=== PATIENT | female | born 1990 | race Caucasian/White ===

== ENCOUNTER 2016-10-21 22:08 | Emergency (ER) ==
[2016-10-21] MEDS ORDERED: COMPAZINE IV ONE (22:58)
[2016-10-21] MEDS ORDERED: TORADOL IV ONE (22:58)
[2016-10-21] MEDS ORDERED: BENADRYL IV ONE (22:59)
[2016-10-21] MEDS ORDERED: NS 500 ML IV ONE (22:59)
--- NOTE | 2016-10-21 23:02 | PROVIDER DOCUMENTATION ---
HPI-Headache - General Chief Complaint: Headache Stated Complaint: HEADACHE Time Seen by Provider: 10/21/16 22:40 Source: patient Allergies/Adverse Reactions: Patient Allergies Allergy/AdvReac Type Severity Reaction Status Date / Time Penicillins Allergy Unknown Verified 08/31/16 14:17 - History of Present Illness-Headache Nature of Presenting Problem: 25 year old F presents to the ED with a cc of headache and nausea with an onset of this morning. Headache Location: reports: global Quality of Pain: reports: aching Severity: reports: mild Onset/Duration: reports: this morning Timing: reports: still present Headache Context: reports: nothing Headache History: reports: history of migraines Any recent trauma/injury?: reports: none Headache severity at the maximum: mild Headache Exacerbated by:: reports: light, noise Modifying Factors: improves with: nothing Associated Symptoms: reports: headache, nausea Similar Symptoms Previously?: Yes Recently seen or treated by another doctor?: No Review of Systems - Adult - REVIEW OF SYSTEMS - ADULT Constitutional: denies: chills, fever Eyes: reports: other (photophobic). denies: blurred vision Ears, Nose, Mouth & Throat: denies: ear pain, throat pain Cardiovascular: reports: no symptoms reported Respiratory: reports: no symptoms reported Gastrointestinal: reports: nausea. denies: vomiting Genitourinary: reports: no symptoms reported Musculoskeletal: reports: no symptoms reported Integumentary: reports: no symptoms reported Neurological: reports: headache/migraines. denies: dizziness/vertigo Psychiatric: reports: no symptoms reported Endocrine: reports: no symptoms reported Hematologic/Lymphatic: reports: no symptoms reported Allergic/Immunologic: reports: no symptoms reported All Other Systems: Reviewed and Negative Past History - Adult - PAST MEDICAL HISTORY-ADULT Review of Records: reports: Nursing Assessment Review, Medications Reviewed Major Childhood Illnesses: reports: denies history Neurological: reports: headaches/migraines - PRIOR SURGERIES/PROCEDURES Surgical/Procedure History: reports: , tonsillectomy - IMMUNIZATION STATUS Childhood Immunizations: See Nurse Assessment Flu Vaccine: See Nurse Assessment - FAMILY HISTORY Family History: reviewed, not pertinent - SOCIAL HISTORY Smoking: cigarettes, less than 1 pack/day Provider spent 3-5 mins advising pt. on dangers of tobacco.: Discussed manners to quit use, and f/u contacts for add'l counseling. Substance Use: none/never Alcohol Use Frequency: never Physical Exam- Neurological - Physical Exam-Neuro Initial Vital Signs Reviewed: Yes General Appearance: appears well, alert, no apparent distress Eye Exam: bilateral eye: normal inspection, PERRL, EOMI, photophobia HENMT: normocephalic/atraumatic, normal ENT inspection, TMs normal, pharynx normal Head Injury: no evidence of injury Neck: non-tender, full range of motion, supple, normal inspection Respiratory: chest non-tender, lungs clear, normal breath sounds Cardiovascular: normal peripheral pulses, regular rate, rhythm, no edema Extremity: normal range of motion, normal inspection directional survey drafter Exam: normal hearing, normal speech, PERRL Neurologic: directional survey drafter II-XII nml as tested, no motor/sensory deficits Integumentary: normal color, normal turgor, warm/dry Psych/Mental Status: AL, normal mood/affect, normal thought content, normal thought process, oriented x 3 Progress - PLAN OF CARE/RESULTS Progress/Plan/Lab Results: plan of care: medications, fluids Orders Category Date Time Status 0.9% Sodium Chloride Inj [Ns] 500 ml Med 10/21/16 22:59 Discontinued IV 999 mls/hr Diphenhydramine [Benadryl] Med 10/21/16 22:59 Discontinued 25 mg IV NOW ONE Ketorolac [Toradol] Med 10/21/16 22:58 Discontinued 30 mg IV NOW ONE Prochlorperazine [Compazine] Med 10/21/16 22:58 Discontinued 10 mg IV NOW ONE Vital Signs - 24 hr 10/21/16 22:25 Temperature 98.2 F Pulse Rate 96 H Respiratory 18 Rate Blood Pressure 117/67 O2 Sat by Pulse 100 Oximetry Pt given results and will be d/c home w/o rx to follow up with PCP. Pt verbally understood instructions. PT remained clinically stable throughout the course of the ED stay and will return if symptoms worsen. - REASSESSMENT Reassessment #1 Time Reassessed: 00:32 Status: improving Reassessment Comment: headache has resolved. Pt will be d/c home. Departure - Departure Time of Disposition Order: 00:40 DIAGNOSIS: Migraine Qualifiers: Migraine type: without aura Status migrainosus presence: without status migrainosus Intractability: not intractable Qualified Code(s): G43.009 - Migraine without aura, not intractable, without status migrainosus Disposition: HOME 01 Certified Medical Emergency: Emergent Condition: Good Additional Instructions: Follow up with primary care doctor. Return to ED for any new or worsening symptoms. Establish care with a primary physician by calling the physician referral line below ED Follow Up Instructions: You have been treated by a care provider in the Emergency Department. These instructions are being provided to you so you can have an understanding of how to care for yourself upon discharge. Upon discharge from the Emergency Department, you are responsible for making arrangements for follow-up care by a physician of your choice. Take all prescribed medications as directed. Return to the Emergency Department immediately for any new or worsening symptoms. You may call the Physician Referral phone number at [phone] to obtain a list of Physicians who are taking new patients. Attestation - Scribe Verification/Attestation Scribe:: Marva Ag Acting as Scribe for:: Jorge Freitas Scribe documention review:: This chart was documented by a scribe and accurately reflects the service the provider performed and the decisions made by the provider. Physician Attestation - Physician Attestation I, the provider, attest to the following statement:: Jorge Freitas Physician documentation Attestation:: This documentation recorded by the scribe accurately reflects the service I personally performed and the decisions made by me.
[2016-10-22 00:59] VITALS: BP 95/63
== END 2016-10-22 00:58 | disposition home or self-care (01) ==
LOC: P.ED 22:08
DX: G43.009 Migraine without aura, not intractable, without status migrainosus (principal); R51 Headache; R11.0 Nausea; H53.149 Visual discomfort, unspecified; F17.210 Nicotine dependence, cigarettes, uncomplicated; Z71.6 Tobacco abuse counseling
CPT/HCPCS: 96361; 96374; 96375; J0780; J1200; J1885; J7040

== ENCOUNTER 2019-03-09 05:55 | Inpatient (IN) ==
[2019-03-09] MEDS ORDERED: PEPCID PO ONE ×2 (06:12→07:15)
[2019-03-09] MEDS ORDERED: REGLAN PO ONE (06:12)
[2019-03-09] MEDS ORDERED: CLINDAMYCIN 900 MG/D5W 900 MG/50 ML IVPB IV ONE (06:33)
[2019-03-09] MEDS ORDERED: GENTAMICIN 80 MG/NS 80 MG/50 ML IVPB IV ONE (06:39)
[2019-03-09] MEDS ORDERED: REGLAN IV ONE (07:15)
[2019-03-09] MEDS ORDERED: BICITRA PO ONE (07:15)
[2019-03-09] MEDS: LR 1,000 ML IV SCH ×2 (07:34→08:59)
[2019-03-09 07:56] LABS: URINE SOURCE VOIDED
[2019-03-09 07:57] LABS: BILIRUBIN URINE NEGATIVE (NEGATIVE); BLOOD URINE TRACE (NEGATIVE); CLARITY VERY CLOUDY (CLEAR); COLOR YELLOW; GLUCOSE URINE NEGATIVE (NEGATIVE); KETONE URINE NEGATIVE (NEGATIVE); LEUKOCYTES URINE 2+ (NEGATIVE); NITRITE URINE NEGATIVE (NEGATIVE); PROTEIN URINE TRACE mg/dL (NEGATIVE); SP GRAVITY URINE 1.015; UROBILINOGEN URINE NORMAL
[2019-03-09] MEDS ORDERED: LR 1,000 ML IV SCH ×2 (08:00→11:00)
[2019-03-09 08:06] LABS: UR AMPHETAMINES QUAL NONE DETECTED (NONE DETECT); UR BARBITUATES QUAL NONE DETECTED (NONE DETECT); UR BENZODIAZEPIN QUAL NONE DETECTED (NONE DETECT); UR CANNABINOIDS QUAL NONE DETECTED (NONE DETECT); UR COCAINE QUAL NONE DETECTED (NONE DETECT); UR METHADONE QUAL NONE DETECTED (NONE DETECT); UR METHAMPHETAMINE QUAL NONE DETECTED (NONE DETECT); UR OPIATES QUAL NONE DETECTED (NONE DETECT); UR OXYCODONE QUAL NONE DETECTED (NONE DETECT); UR PCP QUAL NONE DETECTED (NONE DETECT); UR PROPOXYPHENE QUAL NONE DETECTED (NONE DETECT); UR TCA QUAL NONE DETECTED (NONE DETECT)
[2019-03-09 08:27] LABS: BASO# 0.02 X1000 (0.0-0.2); BASO% 0.2 % (0.0-0.8); EOS# 0.15 X1000 (0.0-0.7); EOS% 1.3 % (0.0-10.0); HEMATOCRIT 28.2 % (37.0-47.0); HEMOGLOBIN 9.4 g/dL (12.0-16.0); IMM GRAN# 0.04 X1000 (0.0-0.04); IMM GRAN% 0.3 % (0.0-0.5); LYMPH# 3.35 X1000 (1.2-3.4); LYMPH% 29.1 % (20.5-51.1); MCH 33.6 PG (27-31); MCHC 33.3 g/dL (33-37); MCV 100.7 FL (81-99); MONO# 1.01 X1000 (0.11-0.59); MONO% 8.8 % (1.7-9.3); MPV 11.2 FL (7.4-10.4); NEUT# 6.96 X1000 (1.4-6.5); NEUT% 60.3 % (42.2-75.2); PLT 229 X1000 (130-400); RDW 14.1 % (11.5-14.5); WBC 11.53 X1000 (4.8-10.8)
[2019-03-09] MEDS ORDERED: DURAMORPH ONE (08:43)
[2019-03-09] MEDS ORDERED: ZOFRAN ONE (08:44)
[2019-03-09] MEDS ORDERED: NEO-SYNEPHRINE ONE (08:44)
[2019-03-09] MEDS ORDERED: PITOCIN ONE ×2 (08:44→09:53)
--- NOTE | 2019-03-09 08:53 | HISTORY AND PHYSICAL ---
HISTORY OF PRESENT ILLNESS: The patient is a 28-year-old G 3, P 2-0-0-2 at 39 weeks and 0 days who presents for repeat low transverse section. The patient reports increased lower abdominal pressure. Denies contractions, leakage of fluid, vaginal bleeding. Admits to good movement. MEDICATIONS: vitamins. PAST MEDICAL HISTORY: 1. Heavy menstrual bleeding. 2. Migraines. 3. Upper respiratory tract infection. PAST SURGICAL HISTORY: Prior x2. [employer]SULTANT HISTORY: Denies STD exposure. OBSTETRICAL HISTORY: G 3, P 2-0-0-2. Two prior delivery. ALLERGIES: PCN SOCIAL HISTORY: Denies tobacco use, alcohol or drug use. FAMILY HISTORY: Noncontributory. PHYSICAL EXAMINATION: VITAL SIGNS: stable GENERAL: No acute distress. Awake, alert, oriented x3. CARDIOVASCULAR SYSTEM: Regular rate and rhythm. Positive S1, S2. RESPIRATORY: Clear to auscultation bilaterally. Negative wheezing, rhonchi, or rales. ABDOMEN: Soft, nontender. Soft. Positive bowel sounds. Gravid. EXTREMITIES: Negative calf tenderness. Negative edema. LABORATORY DATA: Rh neg ASSESSMENT: The patient is a 28-year-old G3, P 2-0-0-2 at 39 weeks and 0 days gestation who presents for routine repeat low transverse section. PLAN: Admit to Labor and delivery. Preoperative labs ordered. Plan for routine repeat delivery. [facility]
[2019-03-09] MEDS ORDERED: TORADOL ONE (09:45)
[2019-03-09] MEDS ORDERED: ATROPINE ONE (10:14)
[2019-03-09] MEDS ORDERED: BENADRYL IV PRN ×2 (11:00)
[2019-03-09] MEDS ORDERED: PHENERGAN IV PRN (11:00)
[2019-03-09] MEDS ORDERED: NARCAN IV PRN (11:00)
[2019-03-09] MEDS ORDERED: SODIUM CHLORIDE 0.9% INJ PRN (11:00)
[2019-03-09] MEDS ORDERED: ZOFRAN IV PRN ×3 (11:00)
[2019-03-09] MEDS ORDERED: ZOFRAN ODT PO PRN (11:00)
[2019-03-09] MEDS ORDERED: NARCAN INJ PRN (11:00)
[2019-03-09] MEDS ORDERED: PITOCIN 10 UNITS/NS 1,000 ML IV SCH ×2 (11:15→11:30)
[2019-03-09] MEDS: MORPHINE PCA IV PRN ×2 (11:35→21:19)
[2019-03-09] MEDS ORDERED: PITOCIN 20 UNITS/NS 20 UNITS/1,000 ML IV.SOLN IV SCH (12:00)
[2019-03-09] MEDS ORDERED: EPHEDRINE ONE (12:59)
[2019-03-09] MEDS ORDERED: EPHEDRINE IV ONE (13:00)
[2019-03-09 13:33] LABS: HEMATOCRIT 26.9 % (37.0-47.0); HEMOGLOBIN 8.7 g/dL (12.0-16.0)
[2019-03-09] MEDS: PITOCIN 10 UNITS/NS 1,000 ML IV SCH (19:03)
[2019-03-09] MEDS ORDERED: MYLICON PO PRN (20:04)
[2019-03-09] MEDS: MYLICON PO SCH (21:13)
[2019-03-09] MEDS: PERICOLACE PO SCH (21:13)
[2019-03-10] MEDS: PITOCIN 10 UNITS/NS 1,000 ML IV SCH (03:02)
[2019-03-10] MEDS: MORPHINE PCA IV PRN (05:02)
[2019-03-10 06:02] LABS: BASO# 0.02 X1000 (0.0-0.2); BASO% 0.1 % (0.0-0.8); EOS# 0.05 X1000 (0.0-0.7); EOS% 0.4 % (0.0-10.0); HEMATOCRIT 25.9 % (37.0-47.0); HEMOGLOBIN 8.3 g/dL (12.0-16.0); IMM GRAN# 0.03 X1000 (0.0-0.04); IMM GRAN% 0.2 % (0.0-0.5); LYMPH# 1.33 X1000 (1.2-3.4); LYMPH% 9.9 % (20.5-51.1); MCH 32.5 PG (27-31); MCV 101.6 FL (81-99); MONO# 0.76 X1000 (0.11-0.59); MONO% 5.7 % (1.7-9.3); MPV 11.2 FL (7.4-10.4); NEUT# 11.18 X1000 (1.4-6.5); NEUT% 83.7 % (42.2-75.2); PLT 197 X1000 (130-400); RBC 2.55 XMIL (4.2-5.4); RDW 14.1 % (11.5-14.5); WBC 13.37 X1000 (4.8-10.8)
[2019-03-10] MEDS ORDERED: PERCOCET-5 PO PRN (06:18)
[2019-03-10] MEDS: PERCOCET-10 PO PRN ×4 (07:15→21:35)
[2019-03-10] MEDS: MOTRIN PO PRN ×3 (07:16→23:23)
[2019-03-10] MEDS: MYLICON PO SCH ×4 (09:26→21:35)
[2019-03-10] MEDS ORDERED: NEOSPORIN OINTMENT PACKET TOP ONE (10:18)
--- NOTE | 2019-03-10 10:21 | OB/GYN PROGRESS NOTE ---
Progress Note OB - . OB Progress Note: Vital Signs - 24 hr 03/09/19 10:35 03/09/19 10:45 03/09/19 10:55 Temperature 96.7 F L Pulse Rate 73 70 78 Pulse Rate [Left] 73 Respiratory Rate 18 18 18 Blood Pressure Blood Pressure [Right Arm] 82/52 83/53 86/43 O2 Sat by Pulse Oximetry 99 95 100 03/09/19 11:05 03/09/19 11:15 03/09/19 11:25 Temperature Pulse Rate 67 63 84 Pulse Rate [Left] Respiratory Rate 18 18 18 Blood Pressure Blood Pressure [Right Arm] 101/55 85/57 85/55 O2 Sat by Pulse Oximetry 97 98 96 03/09/19 11:35 03/09/19 14:30 03/09/19 18:50 Temperature 97.4 F L 98 F Pulse Rate 60 60 71 Pulse Rate [Left] Respiratory Rate 20 18 Blood Pressure 84/54 96/52 98/51 Blood Pressure [Right Arm] 84/54 O2 Sat by Pulse Oximetry 100 98 98 03/09/19 23:15 03/10/19 03:05 03/10/19 07:49 Temperature 98.1 F 98.1 F 97.1 F L Pulse Rate 87 92 H 103 H Pulse Rate [Left] Respiratory Rate 16 18 18 Blood Pressure 91/53 99/54 113/58 Blood Pressure [Right Arm] O2 Sat by Pulse Oximetry 98 96 97 Laboratory Results - last 24 hr 03/09/19 03/09/19 03/10/19 13:22 13:22 05:23 WBC 13.37 H RBC 2.55 L Hgb 8.7 L 8.3 L Hct 26.9 L 25.9 L MCV 101.6 H MCH 32.5 H MCHC 32.0 L RDW Std Deviation 14.1 Plt Count 197 MPV 11.2 H Immature Gran % (Auto) 0.2 Neut % (Auto) 83.7 H Lymph % (Auto) 9.9 L Nance % (Auto) 5.7 Eos % (Auto) 0.4 Baso % (Auto) 0.1 Immature Gran # (Auto) 0.03 Neut # (Auto) 11.18 H Lymph # (Auto) 1.33 Nance # (Auto) 0.76 H Eos # (Auto) 0.05 Baso # (Auto) 0.02 ABO/Rh O NEGATIVE Screen NEGATIVE RhIG Candidate? YES patient doing well. no complaints. lochia less than menses AFVSS General: AAO x3 in NAD HEENT: NCAT CV: S1 S2 normal Lungs: clear to auscultation Abd: fundus firm positive bowel sounds, incision clean dry and intact. area of blistering from tape Ext: no edema A/P POD # 1 s/p repeat low transverse c section - continue post care - neosporin for blister Anemia- start iron therapy
[2019-03-10] MEDS: FERROUS SULFATE PO SCH (11:30)
[2019-03-10] MEDS: PERICOLACE PO SCH (21:36)
[2019-03-11] MEDS: PERCOCET-10 PO PRN ×3 (01:12→10:47)
[2019-03-11] MEDS ORDERED: NEOSPORIN OINTMENT PACKET TOP PRN (06:01)
[2019-03-11] MEDS: MOTRIN PO PRN (07:48)
[2019-03-11 07:56] VITALS: BP 106/58
[2019-03-11] MEDS: FERROUS SULFATE PO SCH (09:33)
[2019-03-11] MEDS: MYLICON PO SCH ×2 (09:34→13:25)
--- NOTE | 2019-03-11 12:52 | OB/GYN PROGRESS NOTE ---
Progress Note OB - . OB Progress Note: Vital Signs - 24 hr 03/10/19 15:38 03/10/19 21:38 03/11/19 07:55 Temperature 97.7 F 97.6 F 97.1 F L Pulse Rate 90 90 94 H Respiratory Rate 18 18 18 Blood Pressure 97/55 99/53 106/58 O2 Sat by Pulse Oximetry 97 99 99 No complaints, ambulating without difficulty, pain well controlled, tolerating po intake, return of bowel function A&O NAD CTAB RRR S/ND/appropriate post op discomfort Incision C/D/I without E/E/I No C/C/E A/P: POD 2 s/p Repeat LTCS doing well - D/C home - follow up Dr. Ruby 6 wks or prn - ferrous sulfate twice daily for acute blood loss anemia.
--- NOTE | 2019-03-13 09:01 | OPERATIVE NOTE ---
PROCEDURE DATE: 03/09/2019 PREOPERATIVE DIAGNOSES: 1. Term at 39 weeks and 0 days. 2. Prior section x2. POSTOPERATIVE DIAGNOSES: 1. Term at 39 weeks and 0 days. 2. Prior section x2. PROCEDURE: Repeat low transverse section via Pfannenstiel incision. SURGEON: Dr. Jeremy Ruby. SPORTS INTERNSHIP: Dr. Braxton Wong ANESTHESIA: Spinal. ESTIMATED BLOOD LOSS: 600 mL. SPECIMEN: Placenta to pathology. COMPLICATIONS: None. FINDINGS: Male in vertex position. Apgars 9 and 10 at 1 and 5 minutes respectively. Normal uterus, tubes, and ovaries. INDICATIONS AND CONSENT: Mrs. Morgan is a 28-year-old G3, P2, 0-0-2 with prior delivery x2, presents for a scheduled repeat at 39 weeks and 0 days. The patient understood the risk of section include, but are not limited to visceral vascular injury, infection, blood loss, and need for transfusion, prolonged hospitalization, and reoperation. The patient stated an understanding and desired to proceed. All questions were answered. DESCRIPTION OF PROCEDURE: The patient was taken to the operating room where spinal anesthesia was performed and found to be adequate. The patient received a combination of clindamycin and gentamicin for an infection prophylaxis via IV. She was prepped and draped in dorsal supine position with a leftward tilt. A Pfannenstiel skin incision was made with a scalpel. The incision was carried down to the fascia with the Bovie. The fascia was incised and extended laterally. The inferior aspect of the fascia was grasped with Holly clamps. The underlying rectus muscle and pyramidalis was dissected off with the Bovie. In a similar fashion, the superior aspect of the fascia was elevated with Holly clamps, and the rectus muscle was dissected off. Hemostasis was achieved with the Bovie. The rectus muscle was in the midline down to the level of the pubic symphysis. Preperitoneal fatty tissue was bluntly dissected to expose peritoneum. The peritoneum was found to be free of adherent bowel and entered bluntly. The peritoneal incision was extended superiorly and inferiorly to the bladder reflection with good visualization of the bladder. Multiple adhesions were noted along the anterior surface of the uterine serosa. Adhesions were removed using the Bovie. The bladder blade was inserted and the vesicouterine peritoneum identified. The vesicouterine peritoneum was opened with Metzenbaum scissors, and a bladder flap was developed. The bladder blade was repositioned to keep the bladder out of the operative field. The lower uterine segment was incised with a scalpel. The amniotic sac was ruptured and clear fluid noted. The uterine incision was extended bluntly with upward and downward traction. The fetus was in cephalic presentation. The head was elevated out the pelvis with special attention paid to avoid using the uterine incision as a fulcrum. Gentle fundal pressure was applied once the head was brought into the incision. The was delivered without difficulty. The mouth and nose were suctioned with a bulb. The cord was clamped and cut. The infant was handed off to the professional engineer staff. IV oxytocin was initiated to facilitate uterine contractions. The placenta was delivered intact with manual massage of the uterine fundus. The uterus was then exteriorized. The inside of the uterus was gently wiped with a lap sponge to assure complete removal of placental membranes. The uterine incision was closed with 1- 0 Monocryl suture in a running locked fashion. Additional figure of 8 sutures were applied to obtain hemostasis along the uterine incision. Attention was then turned to the anterior surface of the uterine serosa where prior adhesions were noted and hemostasis was required. Figure of 8 sutures using a 0 Vicryl stitch was applied to obtain hemostasis. Ovaries and tubes were found to be normal. The uterus, tubes, and ovaries were then returned to the abdominal cavity. Surgifoam was applied to the anterior surface of the uterus, and also along the uterine incision line to reinforce hemostasis. The blood clots and fluid were wiped out of the abdomen and pelvis with moist laparotomy sponges. The uterine incision was inspected and good hemostasis was noted. The fascial area was closed with 0 Vicryl in a running nonlocked fashion. The subcutaneous tissue was closed using 2-0 plain gut in a running nonlocking fashion. The skin was closed using 4-0 Monocryl on a Scot needle insert. The patient tolerated the procedure well. All counts were correct x2. The patient was taken to the recovery room in stable condition.
== END 2019-03-11 13:55 | disposition home or self-care (01) | DRG 787 ==
LOC: P.LD 05:55
PROVIDERS: ADMIT Obstetrics & Gynecology; ATTEND Obstetrics & Gynecology
CPT/HCPCS: 80104; 80301; 80305; 81003; 85014; 85018; 85025; 85461; 86592; 86850; 86870; 86900; 86901; A9270; G0431; G0434; G0477; J0461; J1200; J1580; J1885; J2270; J2274; J2275; J2370; J2405; J2590; J2765; J2790; J7120; Q9974